=== PATIENT | female | born 1980 ===

== ENCOUNTER 2016-10-29 22:58 | Emergency (ER) | payer OTHER ==
[2016-10-29] MEDS ORDERED: Apap-Butalbital-Caffeine 325-50-40mg Tab PO STA (23:22)
[2016-10-29] MEDS ORDERED: Apap-Butalbital-Caffeine 325-50-40mg Tab ONE (23:46)
--- NOTE | 2016-10-30 00:20 | CT ---
EXAM: CT Head Without Intravenous Contrast CLINICAL HISTORY: 36 years old, female; Pain; Headache and other: Pain back of head; Additional info: R/O bleed TECHNIQUE: Axial computed tomography images of the head/brain without intravenous contrast. This CT exam was performed using one or more of the following dose reduction techniques: automated exposure control, adjustment of the mA and/or kV according to patient size, and/or use of iterative reconstruction technique. COMPARISON: No relevant prior studies available. FINDINGS: Brain: No acute intracranial hemorrhage. No significant white matter disease. No edema. Ventricles: No significant ventriculomegaly. Bones: No acute displaced fracture. Sinuses: Unremarkable as visualized. No acute sinusitis. Mastoid air cells: Unremarkable as visualized. No mastoid effusion. IMPRESSION: No acute intracranial hemorrhage, or suspicious mass effect.
--- NOTE | 2016-10-30 00:31 | C.PDOC ---
History Of Present Illness 36 yo female c/o headache to the back of her head. She states " I feel something dripping." Notes she has a dripping sensation from her neck and radiates to the back of her head. H/o migraines in the past, notes this feels different. No visual changes. No fever. No subjective neurological changes. No n /v or photophobia. Took Excedrin without relief. No weakness or change in sensation. Time Seen by Provider: 10/29/16 23:10 Chief Complaint (Nursing): Headache History Per: Patient History/Exam Limitations: no limitations Onset/Duration Of Symptoms: Hrs Current Symptoms Are (Timing): Still Present Severity: Mild Associated Symptoms: denies: Photophobia, Blurred Vision, Nausea, Vomiting, Extremity Weakness Recent travel outside of the [place]: No Additional History Per: Patient Past Medical History Reviewed: Historical Data, Nursing Documentation, Vital Signs Vital Signs: Last Vital Signs Temp 98.2 F 10/30/16 01:05 Pulse 76 10/30/16 01:05 Resp 20 10/30/16 01:05 BP 128/72 10/30/16 01:05 Pulse Ox 100 10/30/16 02:37 Family History: States: Unknown Family Hx - Social History Hx Alcohol Use: No Hx Substance Use: No - Immunization History Hx Tetanus Toxoid Vaccination: Yes Hx Influenza Vaccination: Yes Hx Pneumococcal Vaccination: Yes Review Of Systems Except As Marked, All Systems Reviewed And Found Negative. Constitutional: Negative for: Fever Eyes: Negative for: Vision Change, Other (Photophobia) Gastrointestinal: Negative for: Nausea, Vomiting Neurological: Positive for: Headache. Negative for: Weakness, Numbness Physical Exam - Physical Exam Appears: Well, Non-toxic, No Acute Distress Skin: Warm, Dry Head: Atraumatic, Normacephalic Eye(s): bilateral: Normal Inspection, PERRL, EOMI Ear(s): Bilateral: Normal Nose: Normal Oral Mucosa: Moist Throat: Normal, No Erythema, No Exudate Neck: Normal, Normal ROM, Supple Chest: Symmetrical Cardiovascular: Rhythm Regular Respiratory: Normal Breath Sounds, No Accessory Muscle Use, No Wheezing, Other ( Speaking in full sentences) Neurological/Psych: Oriented x3, Normal Speech, Normal Cognition, Normal Cranial Nerves, Other (No focal deficit) Gait: Steady ED Course And Treatment O2 Sat by Pulse Oximetry: 100 (RA) Pulse Ox Interpretation: Normal - CT Scan/US CT Head w/o Contrast Other Rad Studies (CT/US): Interpreted By Me, Read By Radiologist CT/US Interpretation: EXAM: CT Head Without Intravenous Contrast. CLINICAL HISTORY: 36 years old, female; Pain; Headache and other: Pain back of head; Additional info: R/O bleed. TECHNIQUE: Axial computed tomography images of the head/brain without intravenous contrast. This CT exam. was performed using one or more of the following dose reduction techniques: automated exposure. control, adjustment of the mA and/or kV according to patient size, and/or use of iterative. reconstruction technique. COMPARISON: No relevant prior studies available. FINDINGS: Brain: No acute intracranial hemorrhage. No significant white matter disease. No edema. Ventricles: No significant ventriculomegaly. Bones: No acute displaced fracture. Sinuses: Unremarkable as visualized. No acute sinusitis. Mastoid air cells: Unremarkable as visualized. No mastoid effusion. IMPRESSION: No acute intracranial hemorrhage , or suspicious mass effect. Progress Note: Impression: 36 yo female c/o headache to the back of her head. Plans: Fioricet, Reglan, Reassess. On re-evalaution, patient is resting comfortably, is tolerating PO, and no longer has headache, neurologic deficit, photophobia, rash, fever, or nuchal rigidity. Patient was instructed to follow up with physician/clinic in 1-2 days. Disposition - Disposition Referrals: Satya Fuentes MD [Staff Provider] - Disposition: HOME/ ROUTINE Disposition Time: 00:29 Condition: STABLE Additional Instructions: Follow up with primary medical doctor in 1-3 days without fail for further evaluation. Take medications as prescribed. Return to the emergency department at any time if symptoms persist or worsen. Prescriptions: Acetaminophen/Butalbital/Caf [Fioricet] 1 tab PO TID PRN #20 tab PRN Reason: Headache Instructions: Acute Headache (ED) Forms: [facility] (Arabic) - Clinical Impression Clinical Impression: Headache - Scribe Statement The provider has reviewed the documentation as recorded by the Scribe Reji moses All medical record entries made by the Scribe were at my direction and personally dictated by me. I have reviewed the chart and agree that the record accurately reflects my personal performance of the history, physical exam, medical decision making, and the department course for this patient. I have also personally directed, reviewed, and agree with the discharge instructions and disposition.
[2016-10-30 01:06] VITALS: BP 128/72; PULSE 76; RESP 20; TEMP 98.2
[2016-10-30 02:12] VITALS: O2SAT 100
== END 2016-10-30 01:05 | disposition home or self-care (01) ==
LOC: C.ER 22:58
DX: R51 Headache (principal)